=== PATIENT | male | born 2000 | race Two or more races ===

== ENCOUNTER 2018-11-10 19:41 | Inpatient (IN) | payer MEDICAID, OTHER ==
[~2018-11-10] VITALS: Ht 170.2 cm; Wt 48.7 kg
[2018-11-10 20:41] LABS: Amphetamine Screen, Urine NEGATIVE (NEGATIVE); Barbiturate Scree,Urine NEGATIVE (NEGATIVE); Benzodiazephine Screen, Urine NEGATIVE (NEGATIVE); Cannabinoid Screen, Urine NEGATIVE (NEGATIVE); Cocaine Screen, Urine NEGATIVE (NEGATIVE); Opiate Scree,Urine NEGATIVE (NEGATIVE); Phencyclidine Screen, Urine NEGATIVE (NEGATIVE)
[2018-11-10 21:01] LABS: Basophils # (auto) 0 uL; Basophils % (auto) 0.3 % (0.0-2.0); Eosinophils # (auto) 0 uL; Eosinophils % (auto) 0.2 % (0.0-7.0); Hematocrit 49.9 % (41.0-53.0); Hemoglobin 17.1 g/dL (13.5-17.5); Lymphocytes # (auto) 1.6 uL; Lymphocytes % (auto) 12.3 % (10.0-50.0); Mean Corpuscular Hemoglobin 29.9 pg (28.0-32.0); Mean Corpuscular Hgb Conc. 34.3 g/dL (32.0-36.0); Mean Corpuscular Volume 87.3 fL (80.0-100.0); Monocytes # (auto) 0.9 uL; Monocytes % (auto) 7.2 % (0.0-12.0); Neutrophils # (auto) 10.5 uL; Nucleated Red Blood Cells % 0.1 %; Platelet Count (auto) 295 10^3/uL (140-450); Red Blood Cells 5.72 10^6/uL (4.5-5.90); Red Cell Distribution Width 13.4 % (11.8-14.3); White Blood Cell 13.1 10^3/uL (4.4-10.8)
[2018-11-10] MEDS ORDERED: LORazepam 2MG/ML-1ML VIAL ONE (21:09)
[2018-11-10] MEDS ORDERED: LIDOCAINE 2% (LOCAL ANESTH.) PF 5ml SDV ONE (21:13)
[2018-11-10 21:18] LABS: INR 1.05 (0.9-1.15); Partial Thromboplastin Time 31.9 sec (23.78-33.04); Prothrombin Time 11.2 sec (9.27-12.13)
[2018-11-10 21:19] LABS: Anion Gap 10 (5-15); BUN/Creatinine Ratio 13.7; Blood Urea Nitrogen 14 mg/dL (7-18); Carbon Dioxide 24 mmol/L (21-32); Chloride 103 mmol/L (98-107); GFR African American 120 mL/min; GFR Non-African American 99 mL/min; Glucose 97 mg/dL (74-106); Magnesium 2.2 mg/dL (1.6-2.6); Potassium 4.1 mmol/L (3.5-5.1); Sodium 137 mmol/L (136-145)
[2018-11-10 21:24] LABS: Alanine Aminotransferase 21 U/L (16-61); Alkaline Phosphatase 148 U/L (45-117); Aspartate Aminotransferase 16 U/L (15-37); Bilirubin, Total 0.4 mg/dL (0.2-1.0); Total Protein 9.4 g/dL (6.4-8.2)
[2018-11-10] MEDS ORDERED: MORPHINE SULFATE 4 MG/ML SYR/VIAL ONE (22:35)
[2018-11-10] MEDS ORDERED: ONDANSETRON HCL 4 MG/2 ML VIAL ONE (22:36)
[2018-11-10] MEDS ORDERED: ETOMIDATE (2MG/ML) 20ML VIAL IV ONE (22:40)
[2018-11-10] MEDS ORDERED: IPRATROPIUM BROM 0.5 MG/2.5ML INH SOL NEB ONE (23:30)
[2018-11-10] MEDS ORDERED: ALBUTEROL SULF 2.5 MG/0.5ML(0.5%) NEB SOLN NEB ONE (23:30)
[2018-11-10] MEDS ORDERED: cefTRIAXone 1GM/50ML D5W 50 ML IV ONE (23:30)
[2018-11-11] MEDS ORDERED: ACETAMINOPHEN 500 MG TAB PO PRN (02:15)
[2018-11-11] MEDS ORDERED: ONDANSETRON HCL 4 MG/2 ML VIAL IV PRN (02:15)
[2018-11-11] MEDS ORDERED: MORPHINE SULF INJ 2 MG/ML SYRINGE 1ML IV PRN (02:15)
[2018-11-11] MEDS ORDERED: ETOMIDATE (2MG/ML) 20ML VIAL IV ONE (02:45)
[2018-11-11] MEDS ORDERED: MORPHINE SULFATE 4 MG/ML SYR/VIAL IV ONE (02:45)
[2018-11-11] MEDS ORDERED: LIDOCAINE 2%HCL (LOCAL ANESTH.) INJ 10ml MDV IJ ONE (02:45)
[2018-11-11] MEDS ORDERED: ONDANSETRON HCL 4 MG/2 ML VIAL IV ONE (02:45)
[2018-11-11] MEDS ORDERED: LORazepam 2MG/ML-1ML VIAL IV ONE ×2 (02:45)
[2018-11-11] MEDS ORDERED: SODIUM CHLORIDE 0.9% 1,000 ML IV ONE (03:00)
[2018-11-11 03:58] LABS: Urine Bacteria NONE SEEN /hpf (None Seen); Urine Blood Negative /uL (Negative); Urine Specific Gravity 1.011 (1.001-1.035); Urine WBC <1 /hpf (0 - 3)
[2018-11-11 05:43] LABS: Basophils # (auto) 0 uL; Basophils % (auto) 0.2 % (0.0-2.0); Eosinophils # (auto) 0 uL; Eosinophils % (auto) 0.2 % (0.0-7.0); Hematocrit 45.3 % (41.0-53.0); Hemoglobin 15.3 g/dL (13.5-17.5); Lymphocytes # (auto) 1.9 uL; Lymphocytes % (auto) 15.7 % (10.0-50.0); Mean Corpuscular Hemoglobin 29.7 pg (28.0-32.0); Mean Corpuscular Hgb Conc. 33.8 g/dL (32.0-36.0); Mean Corpuscular Volume 87.8 fL (80.0-100.0); Monocytes # (auto) 1.2 uL; Monocytes % (auto) 9.9 % (0.0-12.0); Neutrophils # (auto) 9.2 uL; Nucleated Red Blood Cells % 0.1 %; Platelet Count (auto) 249 10^3/uL (140-450); Red Blood Cells 5.16 10^6/uL (4.5-5.90); White Blood Cell 12.4 10^3/uL (4.4-10.8)
[2018-11-11] MEDS: FAMOTIDINE 20 MG TAB PO SCH ×2 (10:10→21:07)
[2018-11-11 20:00] VITALS: BP 107/62
[2018-11-11] MEDS: HYDROcodone-ACET 5/325MG TAB PO PRN (20:27)
[2018-11-11 22:00] VITALS: BP 107/62
[2018-11-11 23:17] VITALS: BP 114/60
[2018-11-12 05:00] VITALS: BP 106/66
[2018-11-12 06:17] LABS: Calcium 9.1 mg/dL (8.5-10.1); Potassium 4.2 mmol/L (3.5-5.1)
[2018-11-12 06:20] LABS: BUN/Creatinine Ratio 16.5
[2018-11-12 08:00] VITALS: BP 105/80
[2018-11-12 09:00] VITALS: BP 105/80
[2018-11-12] MEDS: FAMOTIDINE 20 MG TAB PO SCH ×2 (09:45→22:14)
[2018-11-12 13:00] VITALS: BP 97/63
[2018-11-12 14:27] VITALS: BP 93/55
[2018-11-12 21:30] VITALS: BP 104/68
[2018-11-13] VITALS (7 sets, daily range): BP systolic 90–105; BP diastolic 54–68
[2018-11-13] MEDS: FAMOTIDINE 20 MG TAB PO SCH ×2 (10:17→22:57)
[2018-11-13] MEDS: HYDROcodone-ACET 5/325MG TAB PO PRN (16:57)
[2018-11-14 05:00] VITALS: BP 94/56
[2018-11-14 08:00] VITALS: BP 98/68
[2018-11-14 09:40] VITALS: BP 98/68
[2018-11-14] MEDS: FAMOTIDINE 20 MG TAB PO SCH ×2 (09:56→21:39)
[2018-11-14 12:56] VITALS: BP 105/68
[2018-11-14] MEDS ORDERED: MORPHINE SULF INJ 2 MG/ML SYRINGE 1ML IV PRN (14:00)
[2018-11-14] MEDS ORDERED: HYDROcodone-ACET 5/325MG TAB PO PRN (14:00)
[2018-11-14 17:08] VITALS: BP 117/72
[2018-11-14 21:49] VITALS: BP 101/59
[2018-11-15 05:18] VITALS: BP 105/67
[2018-11-15 08:00] VITALS: BP 104/69
[2018-11-15 09:00] VITALS: BP 104/69
[2018-11-15] MEDS: FAMOTIDINE 20 MG TAB PO SCH (10:04)
[2018-11-15 13:00] VITALS: BP 100/64
[2018-11-15 16:09] VITALS: BP 92/63
[2018-11-15 17:00] VITALS: BP 113/66
[2018-11-15] MEDS ORDERED: Ensure Enlive Vanilla 8oz Bottle PO SCH (18:00)
== END 2018-11-15 19:00 | disposition home or self-care (01) | DRG 143 ==
LOC: ER 19:45 → OVERFLOW 11-11 02:23 → WEST WING 11-11 20:32
PROVIDERS: ADMIT Nurse Practitioner Family; ATTEND Internal Medicine
PROC: 0W9B30Z Drainage of Left Pleural Cavity with Drainage Device, Percutaneous Approach (ICD-10-PCS; principal; 2018-11-14)
PROC: 0WP8X0Z Removal of Drainage Device from Chest Wall, External Approach (ICD-10-PCS; 2018-11-15)
DX: J93.0 Spontaneous tension pneumothorax (principal); D72.829 Elevated white blood cell count, unspecified; R06.03 Acute respiratory distress; Z83.3 Family history of diabetes mellitus
CPT/HCPCS: 32551; 36415; 71045; 71046; 71250; 80048; 80053; 80307; 81001; 83735; 83880; 84443; 84484; 85025; 85610; 85730; 94640; 96365; 96375; 96376; A6257; G0378; J0696; J2001; J2405

== ENCOUNTER 2018-11-22 12:20 | Emergency (ER) | payer MEDICAID ==
[~2018-11-22] VITALS: Ht 167.6 cm; Wt 49.9 kg
[2018-11-22 13:06] VITALS: BP 132/87
== END 2018-11-22 13:39 | disposition home or self-care (01) ==
LOC: ER 12:21
DX: S21.112D Laceration without foreign body of left front wall of thorax without penetration into thoracic cavity, subsequent encounter (principal); X58.XXXD Exposure to other specified factors, subsequent encounter

== ENCOUNTER 2021-03-21 22:58 | Inpatient (IN) | payer MEDICAID ==
[~2021-03-21] VITALS: Ht 170.2 cm; Wt 61.3 kg
[2021-03-21 23:42] LABS: Basophils # (auto) 0.1 10 ^3/uL (0-0.2); Basophils % (auto) 0.5 % (0.0-2.0); Eosinophils # (auto) 0 10 ^3/uL (0-0.8); Eosinophils % (auto) 0.1 % (0.0-7.0); Hematocrit 49.7 % (41.0-53.0); Hemoglobin 17.3 g/dL (13.5-17.5); Lymphocytes # (auto) 1.2 10 ^3/uL (0.4-5.4); Lymphocytes % (auto) 5.8 % (10.0-50.0); Mean Corpuscular Hemoglobin 30.1 pg (28.0-32.0); Mean Corpuscular Hgb Conc. 34.8 g/dL (32.0-36.0); Mean Corpuscular Volume 86.4 fL (80.0-100.0); Monocytes # (auto) 2.5 10 ^3/uL (0-1.3); Monocytes % (auto) 11.8 % (0.0-12.0); Neutrophils # (auto) 17.4 10 ^3/uL (1.6-8.6); Neutrophils % (auto) 81.8 % (37.0-80.0); Red Blood Cells 5.75 10^6/uL (4.5-5.90); Red Cell Distribution Width 13.2 % (11.8-14.3); White Blood Cell 21.3 10^3/uL (4.4-10.8)
[2021-03-22] LABS: Albumin 3.5 g/dL (3.4-5.0); Calcium 9.1 mg/dL (8.5-10.1); Potassium 4.2 mmol/L (3.5-5.1)
[2021-03-22 00:05] LABS: Bilirubin, Total 0.8 mg/dL (0.2-1.0); Total Protein 9.3 g/dL (6.4-8.2)
[2021-03-22] MEDS ORDERED: VANCOMYCIN 1GM/250ML 250 ML IV ONE (00:45)
[2021-03-22] MEDS ORDERED: PIPERACILLIN-TAZOB 3.375GM 100 ML IV ONE (00:45)
[2021-03-22] MEDS ORDERED: SODIUM CHLORIDE 0.9% 1,000 ML IV ONE (01:00)
[2021-03-22 01:45] LABS: INR 1.22 (0.9-1.15)
[2021-03-22] MEDS ORDERED: HYDROcodone-ACET 5/325MG TAB PO PRN (02:15)
[2021-03-22] MEDS ORDERED: ALUM & MAG HYDROX-SIMETH LIQ(MAALOX) 30 ML PO PRN (02:15)
[2021-03-22] MEDS ORDERED: ACETAMINOPHEN 325 MG TAB PO PRN (02:15)
[2021-03-22] MEDS ORDERED: VANCOMYCIN PER PHARMACY 0 MG IV SCH (02:15)
[2021-03-22] MEDS ORDERED: DOCUSATE SOD 100 MG CAP PO PRN (02:15)
[2021-03-22] MEDS: SODIUM CHLORIDE 0.9% 1,000 ML IV SCH ×2 (03:10→20:46)
[2021-03-22 03:38] LABS: Basophils # (auto) 0.1 10 ^3/uL (0-0.2); Basophils % (auto) 0.4 % (0.0-2.0); Eosinophils # (auto) 0 10 ^3/uL (0-0.8); Eosinophils % (auto) 0.2 % (0.0-7.0); Hematocrit 43.8 % (41.0-53.0); Hemoglobin 15.1 g/dL (13.5-17.5); Lymphocytes # (auto) 1.3 10 ^3/uL (0.4-5.4); Lymphocytes % (auto) 7.4 % (10.0-50.0); Mean Corpuscular Hemoglobin 29.7 pg (28.0-32.0); Mean Corpuscular Hgb Conc. 34.5 g/dL (32.0-36.0); Mean Corpuscular Volume 86.1 fL (80.0-100.0); Monocytes # (auto) 2.1 10 ^3/uL (0-1.3); Monocytes % (auto) 12.2 % (0.0-12.0); Neutrophils # (auto) 13.6 10 ^3/uL (1.6-8.6); Neutrophils % (auto) 79.8 % (37.0-80.0); Nucleated Red Blood Cells % 0.1 %; Red Blood Cells 5.09 10^6/uL (4.5-5.90); Red Cell Distribution Width 13.2 % (11.8-14.3); White Blood Cell 17.1 10^3/uL (4.4-10.8)
[2021-03-22 04:03] LABS: BUN/Creatinine Ratio 18.5; Calcium 8.9 mg/dL (8.5-10.1); Potassium 4.4 mmol/L (3.5-5.1)
[2021-03-22] MEDS: ALBUTEROL SULF HFA 90MCG INH 200DOSE IN SCH ×2 (06:00→16:16)
[2021-03-22] MEDS: PIPERACILLIN-TAZOB 3.375GM 100 ML IV SCH ×3 (06:29→22:27)
[2021-03-22] MEDS: MORPHINE SULFATE INJECTION 2 MG/2 ML SYRG IV PRN ×2 (08:03→14:32)
[2021-03-22] MEDS: ONDANSETRON HCL 4 MG/2 ML VIAL IV PRN ×2 (08:03→14:28)
[2021-03-22] MEDS ORDERED: VANCOMYCIN 750mg/250ml 250 ML IV ONE (13:00)
[2021-03-22] MEDS: LORazepam 0.5 MG TAB PO PRN (14:28)
[2021-03-22 14:57] LABS: Alcohol, Urine < 3.0 mg/dL (0-10); Amphetamine Screen, Urine NEGATIVE (NEGATIVE); Barbiturate Scree,Urine NEGATIVE (NEGATIVE); Benzodiazephine Screen, Urine NEGATIVE (NEGATIVE); Cannabinoid Screen, Urine NEGATIVE (NEGATIVE); Cocaine Screen, Urine NEGATIVE (NEGATIVE); Opiate Scree,Urine NEGATIVE (NEGATIVE); Phencyclidine Screen, Urine NEGATIVE (NEGATIVE)
[2021-03-22] MEDS ORDERED: MULTCAP45 PO (14:57)
[2021-03-22 16:15] VITALS: BP 128/83
[2021-03-22] MEDS ORDERED: MIDAZOLAM DRIP 50 mg/50mL 50 ML IV ONE (17:37)
[2021-03-22] MEDS ORDERED: ETOMIDATE (2MG/ML) 20ML VIAL IV ONE ×2 (17:37→17:45)
[2021-03-22] MEDS ORDERED: SUCCINYLCHOLINE CHLORIDE 20 MG/ML 10ML VIAL IV ONE (17:38)
[2021-03-22] MEDS: MIDAZOLAM DRIP 50 mg/50mL 50 ML IV SCH ×2 (17:45→23:13)
[2021-03-22] MEDS: fentaNYL Drip 2500mCg/250mlNS 250 ML IV SCH (17:45)
[2021-03-22 17:55] VITALS: BP 97/56
[2021-03-22] MEDS ORDERED: ALBUTEROL SULF 2.5 MG/0.5ML(0.5%) NEB SOLN NEB PRN (18:00)
[2021-03-22] MEDS ORDERED: NOREPINEPHRINE 8 MG/250ML KIT 250 ML IV SCH (18:00)
[2021-03-22] MEDS ORDERED: NOREPINEPHRINE 8 MG/250ML KIT 250 ML IV ONE (18:01)
[2021-03-22] MEDS ORDERED: fentaNYL Drip 2500mCg/250mlNS 250 ML IV SCH (18:15)
[2021-03-22 19:00] LABS: Urine Bacteria NONE SEEN /hpf (None Seen); Urine Blood Negative /uL (Negative); Urine WBC 1 /hpf (0 - 3)
[2021-03-22] MEDS ORDERED: AMINO ACID INFUSION IN D10W 1,000 ML IV NR (21:30)
[2021-03-22] MEDS ORDERED: TPN PER PHARMACY 0 ML IV SCH (21:30)
[2021-03-22 22:19] VITALS: BP 92/63
[2021-03-23] VITALS (105 sets, daily range): BP systolic 67–149; BP diastolic 26–96
[2021-03-23] MEDS ORDERED: DEXTROSE (50%) 50ML SYRG IV SCH
[2021-03-23] MEDS: VANCOMYCIN 750mg/250ml 250 ML IV SCH ×3 (02:20→16:00)
[2021-03-23 04:48] LABS: Hematocrit 38.3 % (41.0-53.0); Hemoglobin 12.7 g/dL (13.5-17.5); Mean Corpuscular Hemoglobin 29.8 pg (28.0-32.0); Mean Corpuscular Hgb Conc. 33.1 g/dL (32.0-36.0); Mean Corpuscular Volume 89.9 fL (80.0-100.0); Red Blood Cells 4.26 10^6/uL (4.5-5.90); Red Cell Distribution Width 13.1 % (11.8-14.3); White Blood Cell 22.7 10^3/uL (4.4-10.8)
[2021-03-23 05:07] LABS: Basophils % (manual) 0 (0.0-2.0); Blast Cells 0; Eosinophils % (manual) 0 (0-7); Metamyelocytes % 0; Myelocytes % 0; Promyelocytes % 0; Reactive Lymphocytes 0
[2021-03-23 05:15] LABS: Albumin 1.9 g/dL (3.4-5.0); Calcium 7.8 mg/dL (8.5-10.1); Magnesium 2.1 mg/dL (1.6-2.6); Potassium 4.8 mmol/L (3.5-5.1)
[2021-03-23 05:21] LABS: BUN/Creatinine Ratio 11.6; Bilirubin, Total 1.2 mg/dL (0.2-1.0); Phosphorus 3.2 mg/dL (2.5-4.90); Pre Albumin 4.3 mg/dL (20.0-40.0); Total Protein 6.4 g/dL (6.4-8.2)
[2021-03-23] MEDS ORDERED: PHENYLEPHRINE IV 250 ML IV SCH (06:15)
[2021-03-23] MEDS ORDERED: PHENYLEPHRINE IV 250 ML IV ONE (06:29)
[2021-03-23 06:45] LABS: Band Neutrophils % (manual) 32; Lymphocytes % (manual) 13 (10.0-50.0); Monocytes % (manual) 5 (0-12)
[2021-03-23] MEDS: MIDAZOLAM DRIP 50 mg/50mL 50 ML IV SCH ×5 (07:12→23:05)
[2021-03-23] MEDS: InsuLIN REG 1unit/0.01ml Soln (100units/ml) SC SCH ×4 (07:40→18:00)
[2021-03-23] MEDS: PIPERACILLIN-TAZOB 3.375GM 100 ML IV SCH ×3 (07:46→21:33)
[2021-03-23] MEDS: ACCU-CHEK COMFORT CURVE STRIP VI SCH ×4 (07:47→18:20)
[2021-03-23] MEDS: NOREPINEPHRINE BITARTRATE 32 MG in SODIUM CHL 0.9% 218 ML IV SCH (11:28)
[2021-03-23] MEDS: PHENYLEPHRINE INJ 80 MG in SODIUM CHL 0.9% 242 ML IV SCH ×2 (11:28→18:30)
[2021-03-23] MEDS: SODIUM CHLORIDE 0.9% 1,000 ML IV SCH (11:46)
[2021-03-23] MEDS: VASOPRESSIN 50 UNITS in D5W 5% 247.5 ML IV SCH (13:37)
[2021-03-23] MEDS: fentaNYL Drip 2500mCg/250mlNS 250 ML IV SCH (16:55)
[2021-03-23] MEDS: TPN PER PHARMACY IV NR ×7 (20:19)
[2021-03-24] VITALS (99 sets, daily range): BP systolic 72–171; BP diastolic 38–99
[2021-03-24] MEDS: ACCU-CHEK COMFORT CURVE STRIP VI SCH ×5 (00:08→23:41)
[2021-03-24] MEDS: InsuLIN REG 1unit/0.01ml Soln (100units/ml) SC SCH ×5 (00:15→23:41)
[2021-03-24] MEDS: PHENYLEPHRINE INJ 80 MG in SODIUM CHL 0.9% 242 ML IV SCH ×3 (02:05→23:00)
[2021-03-24] MEDS: MIDAZOLAM DRIP 50 mg/50mL 50 ML IV SCH ×3 (02:30→10:23)
[2021-03-24] MEDS: LORazepam 0.5 MG TAB PO PRN (02:33)
[2021-03-24] MEDS: MORPHINE SULFATE INJECTION 2 MG/2 ML SYRG IV PRN (03:06)
[2021-03-24] MEDS: PROPOFOL 100 ML IV SCH (03:21)
[2021-03-24] MEDS: SODIUM CHLORIDE 0.9% 1,000 ML IV SCH (04:17)
[2021-03-24] MEDS: NOREPINEPHRINE BITARTRATE 32 MG in SODIUM CHL 0.9% 218 ML IV SCH (04:25)
[2021-03-24 05:16] LABS: Potassium 4.4 mmol/L (3.5-5.1)
[2021-03-24 05:23] LABS: Albumin 1.5 g/dL (3.4-5.0); BUN/Creatinine Ratio 12.6; Bilirubin, Total 0.9 mg/dL (0.2-1.0); Calcium 7.6 mg/dL (8.5-10.1); Magnesium 1.9 mg/dL (1.6-2.6); Phosphorus 3.4 mg/dL (2.5-4.90); Total Protein 5.5 g/dL (6.4-8.2)
[2021-03-24] MEDS: PIPERACILLIN-TAZOB 3.375GM 100 ML IV SCH ×3 (05:58→22:11)
[2021-03-24] MEDS ORDERED: VANCOMYCIN 750mg/250ml 250 ML IV SCH ×2 (08:00→09:00)
[2021-03-24] MEDS: fentaNYL Drip 2500mCg/250mlNS 250 ML IV SCH ×2 (10:31→22:59)
[2021-03-24] MEDS: VASOPRESSIN 50 UNITS in D5W 5% 247.5 ML IV SCH (11:15)
[2021-03-24] MEDS: LINEZOLID 600MG/300ML 300 ML IV SCH (12:42)
[2021-03-24] MEDS: TPN PER PHARMACY IV NR ×15 (19:57→20:00)
[2021-03-25] VITALS (106 sets, daily range): BP systolic 55–153; BP diastolic 21–76
[2021-03-25] MEDS: MIDAZOLAM DRIP 50 mg/50mL 50 ML IV SCH ×3 (00:19→23:30)
[2021-03-25] MEDS: LINEZOLID 600MG/300ML 300 ML IV SCH ×2 (00:23→13:08)
[2021-03-25] MEDS: PROPOFOL 100 ML IV SCH ×3 (00:30→13:09)
[2021-03-25 04:43] LABS: Basophils # (auto) 0.1 10 ^3/uL (0-0.2); Basophils % (auto) 0.4 % (0.0-2.0); Eosinophils # (auto) 0.4 10 ^3/uL (0-0.8); Eosinophils % (auto) 2.3 % (0.0-7.0); Hematocrit 35.9 % (41.0-53.0); Hemoglobin 12.3 g/dL (13.5-17.5); Lymphocytes # (auto) 0.8 10 ^3/uL (0.4-5.4); Lymphocytes % (auto) 5.3 % (10.0-50.0); Monocytes # (auto) 1.6 10 ^3/uL (0-1.3); Monocytes % (auto) 10.4 % (0.0-12.0); Neutrophils # (auto) 12.6 10 ^3/uL (1.6-8.6); Neutrophils % (auto) 81.6 % (37.0-80.0); Red Blood Cells 4.12 10^6/uL (4.5-5.90); White Blood Cell 15.5 10^3/uL (4.4-10.8)
[2021-03-25 04:44] LABS: Mean Corpuscular Hemoglobin 29.9 pg (28.0-32.0); Mean Corpuscular Hgb Conc. 34.3 g/dL (32.0-36.0); Mean Corpuscular Volume 87.2 fL (80.0-100.0); Red Cell Distribution Width 13.1 % (11.8-14.3)
[2021-03-25 05:00] LABS: Potassium 3.6 mmol/L (3.5-5.1)
[2021-03-25 05:12] LABS: Albumin 1.3 g/dL (3.4-5.0); BUN/Creatinine Ratio 13.2; Bilirubin, Total 0.8 mg/dL (0.2-1.0); Calcium 7.5 mg/dL (8.5-10.1); Phosphorus 3.2 mg/dL (2.5-4.90); Total Protein 5.4 g/dL (6.4-8.2)
[2021-03-25] MEDS: ACCU-CHEK COMFORT CURVE STRIP VI SCH ×4 (05:38→23:47)
[2021-03-25] MEDS: InsuLIN REG 1unit/0.01ml Soln (100units/ml) SC SCH ×4 (05:39→23:48)
[2021-03-25] MEDS: PIPERACILLIN-TAZOB 3.375GM 100 ML IV SCH ×3 (05:42→21:47)
[2021-03-25] MEDS: NOREPINEPHRINE BITARTRATE 32 MG in SODIUM CHL 0.9% 218 ML IV SCH (06:21)
[2021-03-25] MEDS: PHENYLEPHRINE INJ 80 MG in SODIUM CHL 0.9% 242 ML IV SCH ×2 (06:22→21:45)
[2021-03-25] MEDS ORDERED: SODIUM BICARBONATE 8.4 % INJ 50ML VIAL IV ONE (10:00)
[2021-03-25] MEDS: VASOPRESSIN 50 UNITS in D5W 5% 247.5 ML IV SCH (11:15)
[2021-03-25] MEDS ORDERED: SODIUM CHLORIDE 0.9% 1,000 ML IV ONE (13:45)
[2021-03-25 16:32] LABS: Creatinine, Urine 35 mg/dL (30.0-125.0); Sodium Urine 7 mmol/L (40-220)
[2021-03-25 19:08] LABS: BUN/Creatinine Ratio 12.5; Calcium 7.4 mg/dL (8.5-10.1); Potassium 3.5 mmol/L (3.5-5.1)
[2021-03-25] MEDS ORDERED: TPN PER PHARMACY IV NR ×9 (20:00)
[2021-03-25] MEDS: TPN PER PHARMACY IV NR ×8 (20:03)
[2021-03-25] MEDS: fentaNYL Drip 2500mCg/250mlNS 250 ML IV SCH (21:46)
[2021-03-26] VITALS (99 sets, daily range): BP systolic 68–151; BP diastolic 24–77
[2021-03-26] MEDS: LINEZOLID 600MG/300ML 300 ML IV SCH ×2 (00:25→12:42)
[2021-03-26] MEDS: MIDAZOLAM DRIP 50 mg/50mL 50 ML IV SCH ×4 (02:38→19:38)
[2021-03-26 04:29] LABS: Basophils # (auto) 0 10 ^3/uL (0-0.2); Basophils % (auto) 0.3 % (0.0-2.0); Eosinophils # (auto) 0.3 10 ^3/uL (0-0.8); Eosinophils % (auto) 1.7 % (0.0-7.0); Hematocrit 32.7 % (41.0-53.0); Lymphocytes # (auto) 0.8 10 ^3/uL (0.4-5.4); Lymphocytes % (auto) 4.8 % (10.0-50.0); Mean Corpuscular Hemoglobin 29.5 pg (28.0-32.0); Mean Corpuscular Hgb Conc. 33.7 g/dL (32.0-36.0); Mean Corpuscular Volume 87.5 fL (80.0-100.0); Monocytes # (auto) 2.2 10 ^3/uL (0-1.3); Monocytes % (auto) 14.1 % (0.0-12.0); Neutrophils # (auto) 12.6 10 ^3/uL (1.6-8.6); Neutrophils % (auto) 79.1 % (37.0-80.0); Nucleated Red Blood Cells % 0.1 %; Red Blood Cells 3.74 10^6/uL (4.5-5.90); Red Cell Distribution Width 13.9 % (11.8-14.3); White Blood Cell 15.9 10^3/uL (4.4-10.8)
[2021-03-26 04:33] LABS: Potassium 3.4 mmol/L (3.5-5.1)
[2021-03-26] MEDS: NOREPINEPHRINE BITARTRATE 32 MG in SODIUM CHL 0.9% 218 ML IV SCH ×2 (04:40→19:37)
[2021-03-26 04:41] LABS: Albumin 1.2 g/dL (3.4-5.0); BUN/Creatinine Ratio 11.9; Bilirubin, Total 0.8 mg/dL (0.2-1.0); Calcium 7.5 mg/dL (8.5-10.1); Magnesium 2.1 mg/dL (1.6-2.6); Phosphorus 4.4 mg/dL (2.5-4.90); Total Protein 5.4 g/dL (6.4-8.2)
[2021-03-26] MEDS: PIPERACILLIN-TAZOB 3.375GM 100 ML IV SCH ×3 (05:35→22:14)
[2021-03-26] MEDS: ACCU-CHEK COMFORT CURVE STRIP VI SCH ×3 (05:35→18:00)
[2021-03-26] MEDS: InsuLIN REG 1unit/0.01ml Soln (100units/ml) SC SCH ×3 (06:50→18:00)
[2021-03-26] MEDS: PROPOFOL 100 ML IV SCH ×3 (09:13→23:27)
[2021-03-26] MEDS ORDERED: POTASSIUM CHL 20MEQ/50ML 50 ML IV ONE (11:15)
[2021-03-26] MEDS: fentaNYL Drip 2500mCg/250mlNS 250 ML IV SCH ×2 (11:31→23:22)
[2021-03-26] MEDS: VASOPRESSIN 50 UNITS in D5W 5% 247.5 ML IV SCH (19:01)
[2021-03-26] MEDS: PHENYLEPHRINE INJ 80 MG in SODIUM CHL 0.9% 242 ML IV SCH (19:37)
[2021-03-26] MEDS ORDERED: TPN PER PHARMACY IV NR ×8 (20:00)
[2021-03-26] MEDS ORDERED: SODIUM BICARBONATE 8.4 % INJ 50ML VIAL IV ONE (22:00)
[2021-03-26] MEDS ORDERED: SODIUM BICARBONATE 8.4% INJ 50ML SYRINGE ONE (22:02)
[2021-03-27] VITALS (100 sets, daily range): BP systolic 37–112; BP diastolic 13–51
[2021-03-27] MEDS: ACCU-CHEK COMFORT CURVE STRIP VI SCH ×5 (00:11→23:37)
[2021-03-27] MEDS ORDERED: EPINEPHrine HCL 250 ML IV ONE (01:48)
[2021-03-27] MEDS ORDERED: ALBUMIN 25% 100 ML IV ONE ×2 (01:48→02:00)
[2021-03-27] MEDS: EPINEPHrine HCL 250 ML IV SCH ×3 (02:05→22:34)
[2021-03-27] MEDS: PHENYLEPHRINE INJ 80 MG in SODIUM CHL 0.9% 242 ML IV SCH ×2 (02:41→18:18)
[2021-03-27] MEDS: LINEZOLID 600MG/300ML 300 ML IV SCH ×2 (02:43→12:39)
[2021-03-27 03:55] LABS: Basophils # (auto) 0 10 ^3/uL (0-0.2); Basophils % (auto) 0.1 % (0.0-2.0); Eosinophils # (auto) 0.1 10 ^3/uL (0-0.8); Eosinophils % (auto) 0.6 % (0.0-7.0); Hematocrit 29.3 % (41.0-53.0); Hemoglobin 9.8 g/dL (13.5-17.5); Lymphocytes # (auto) 0.5 10 ^3/uL (0.4-5.4); Lymphocytes % (auto) 4.1 % (10.0-50.0); Mean Corpuscular Hemoglobin 29.4 pg (28.0-32.0); Mean Corpuscular Hgb Conc. 33.4 g/dL (32.0-36.0); Mean Corpuscular Volume 87.9 fL (80.0-100.0); Monocytes # (auto) 1.7 10 ^3/uL (0-1.3); Monocytes % (auto) 13.1 % (0.0-12.0); Neutrophils # (auto) 10.7 10 ^3/uL (1.6-8.6); Neutrophils % (auto) 82.1 % (37.0-80.0); Nucleated Red Blood Cells % 0.2 %; Red Blood Cells 3.33 10^6/uL (4.5-5.90); Red Cell Distribution Width 13.8 % (11.8-14.3)
[2021-03-27] MEDS: MIDAZOLAM DRIP 50 mg/50mL 50 ML IV SCH (04:03)
[2021-03-27 04:14] LABS: Albumin 1.7 g/dL (3.4-5.0); Calcium 7.5 mg/dL (8.5-10.1); Magnesium 2.3 mg/dL (1.6-2.6); Potassium 4.1 mmol/L (3.5-5.1)
[2021-03-27 04:19] LABS: BUN/Creatinine Ratio 10.2; Total Protein 5.8 g/dL (6.4-8.2)
[2021-03-27] MEDS: PIPERACILLIN-TAZOB 3.375GM 100 ML IV SCH (06:00)
[2021-03-27] MEDS: InsuLIN REG 1unit/0.01ml Soln (100units/ml) SC SCH ×5 (06:04→23:41)
[2021-03-27] MEDS ORDERED: DOPamine 1600MCG/ML D5W 250 ML IV ONE (12:10)
[2021-03-27] MEDS: DOPamine 1600MCG/ML D5W 250 ML IV SCH ×3 (12:28→23:16)
[2021-03-27] MEDS: VASOPRESSIN 50 UNITS in D5W 5% 247.5 ML IV SCH ×2 (12:28→18:20)
[2021-03-27] MEDS ORDERED: ATRACURIUM BESYLATE 1,000 MG in D5W 5% 150 ML IV SCH (14:15)
[2021-03-27] MEDS ORDERED: SODIUM BICARBONATE 50ML VIAL 100 ML in D5W 5% 1,000 ML IV SCH (15:00)
[2021-03-27] MEDS ORDERED: SODIUM BICARBONATE 8.4 % INJ 50ML VIAL IV ONE ×2 (15:00→17:28)
[2021-03-27] MEDS: SODIUM BICARBONATE 50ML VIAL 150 ML in D5W 5% 1,000 ML IV SCH ×2 (17:15→19:20)
[2021-03-27] MEDS: NOREPINEPHRINE BITARTRATE 32 MG in SODIUM CHL 0.9% 218 ML IV SCH (18:19)
[2021-03-27] MEDS ORDERED: TPN PER PHARMACY IV NR ×10 (20:00)
[2021-03-27] MEDS ORDERED: MEROPENEM 500MG IVPB 50 ML IV SCH (21:00)
[2021-03-27] MEDS: ALBUMIN 25% 100 ML IV SCH (21:16)
[2021-03-28] VITALS (21 sets, daily range): BP systolic 46–68; BP diastolic 18–34
[2021-03-28] MEDS: PHENYLEPHRINE INJ 80 MG in SODIUM CHL 0.9% 242 ML IV SCH (00:08)
[2021-03-28] MEDS ORDERED: ATROPINE SULF 1 MG/10ml SYR IV ONE (01:15)
[2021-03-28] MEDS: LINEZOLID 600MG/300ML 300 ML IV SCH (01:25)
[2021-03-28] MEDS: PROPOFOL 100 ML IV SCH (03:00)
[2021-03-28] MEDS: ALBUMIN 25% 100 ML IV SCH (04:17)
[2021-03-28 04:22] LABS: Hematocrit 22.8 % (41.0-53.0); Monocytes # (auto) 2.2 10 ^3/uL (0-1.3); Neutrophils % (auto) 74.3 % (37.0-80.0); Red Blood Cells 2.52 10^6/uL (4.5-5.90)
[2021-03-28 04:25] LABS: Basophils # (auto) 0 10 ^3/uL (0-0.2); Basophils % (auto) 0.2 % (0.0-2.0); Eosinophils # (auto) 0 10 ^3/uL (0-0.8); Eosinophils % (auto) 0.2 % (0.0-7.0); Hemoglobin 7.6 g/dL (13.5-17.5); Lymphocytes # (auto) 1.4 10 ^3/uL (0.4-5.4); Lymphocytes % (auto) 9.9 % (10.0-50.0); Mean Corpuscular Hemoglobin 30.1 pg (28.0-32.0); Mean Corpuscular Hgb Conc. 33.3 g/dL (32.0-36.0); Mean Corpuscular Volume 90.5 fL (80.0-100.0); Monocytes % (auto) 15.4 % (0.0-12.0); Neutrophils # (auto) 10.5 10 ^3/uL (1.6-8.6); Nucleated Red Blood Cells % 0.9 %; Red Cell Distribution Width 13.8 % (11.8-14.3); White Blood Cell 14.1 10^3/uL (4.4-10.8)
[2021-03-28 04:35] LABS: Potassium 5.1 mmol/L (3.5-5.1)
[2021-03-28 04:39] LABS: Albumin 1.6 g/dL (3.4-5.0); BUN/Creatinine Ratio 8.5; Calcium 6.8 mg/dL (8.5-10.1); Magnesium 2.8 mg/dL (1.6-2.6)
[2021-03-28 04:41] LABS: Bilirubin, Total 0.7 mg/dL (0.2-1.0); Phosphorus 8.7 mg/dL (2.5-4.90)
[2021-03-28] MEDS ORDERED: ATROPINE SULFATE 1 MG/1 ML VIAL ONE (05:06)
[2021-03-28] MEDS ORDERED: SODIUM BICARBONATE 8.4% INJ 50ML SYRINGE IV ONE (05:27)
[2021-03-28] MEDS ORDERED: EPINEPHrine HCL 1 MG/10 ML SYRG IV ONE (05:27)
== END 2021-03-28 05:28 | DRG 720 ==
LOC: ER 22:58 → TELE 03-22 02:11 → ICU WEST 03-22 23:28
PROVIDERS: ADMIT Hospitalist; ATTEND Internal Medicine Pulmonary Disease
PROC: 02HV33Z Insertion of Infusion Device into Superior Vena Cava, Percutaneous Approach (ICD-10-PCS; principal; 2021-03-22)
PROC: 5A1955Z Respiratory Ventilation, Greater than 96 Consecutive Hours (ICD-10-PCS; 2021-03-22)
PROC: 0BH17EZ Insertion of Endotracheal Airway into Trachea, Via Natural or Artificial Opening (ICD-10-PCS; 2021-03-22)
PROC: 0W9B30Z Drainage of Left Pleural Cavity with Drainage Device, Percutaneous Approach (ICD-10-PCS; 2021-03-23)
PROC: 0W9930Z Drainage of Right Pleural Cavity with Drainage Device, Percutaneous Approach (ICD-10-PCS; 2021-03-23)
PROC: 5A12012 Performance of Cardiac Output, Single, Manual (ICD-10-PCS; 2021-03-28)
DX: A41.9 Sepsis, unspecified organism (principal); N17.0 Acute kidney failure with tubular necrosis; G92 Toxic encephalopathy; R65.21 Severe sepsis with septic shock; J15.212 Pneumonia due to Methicillin resistant Staphylococcus aureus; J93.12 Secondary spontaneous pneumothorax; J90 Pleural effusion, not elsewhere classified; J96.02 Acute respiratory failure with hypercapnia; J96.01 Acute respiratory failure with hypoxia; J43.9 Emphysema, unspecified; G93.1 Anoxic brain damage, not elsewhere classified; H57.02 Anisocoria; Z20.822 Contact with and (suspected) exposure to COVID-19; Z83.3 Family history of diabetes mellitus; Q87.40 Marfan syndrome, unspecified
CPT/HCPCS: 36415; 36600; 71045; 71250; 76942; 80048; 80053; 80202; 80307; 81001; 82040; 82550; 82570; 82805; 82962; 83605; 83735; 84100; 84300; 84478; 84484; 85007; 85025; 85027; 85610; 87040; 87070; 87077; 87081; 87086; 87186; 87205; 87426; 93005; 94003; 96365; 96366; 96368; 96375; 99291; A4223; C1729; G0378; J0171; J0330; J0461; J1815; J2185; J2250; J2405; J2543; J2704; J7060; P9047